=== PATIENT | female | born 1980 ===

== ENCOUNTER 2018-06-17 15:02 | Emergency (ER) | payer MEDICAID, OTHER ==
[2018-06-17 15:09] VITALS: RESP 18
--- NOTE | 2018-06-17 16:01 | RAD ---
Date of service: 06/17/2018 PROCEDURE: CHEST RADIOGRAPH, 1 VIEW HISTORY: chest pain COMPARISON: 02/15/2016 FINDINGS: LUNGS: Clear. PLEURA: No pneumothorax or pleural fluid seen. CARDIOVASCULAR: No aortic atherosclerotic calcification present. Normal. OSSEOUS STRUCTURES: No significant abnormalities. VISUALIZED UPPER ABDOMEN: Normal. OTHER FINDINGS: None. IMPRESSION: No active disease.
[2018-06-17 16:36] LABS: BASO # 0.1 K/uL (0.0-0.2); BASO % 1.6 % (0.0-2.0); EOS # 0.1 K/uL (0.0-0.7); EOS % 1.4 % (0.0-4.0); HEMOGLOBIN 13.4 g/dL (11.0-16.0); LYMPH # 1.8 K/uL (1.0-4.3); LYMPH % 30.7 % (20.0-40.0); MEAN CELL VOLUME 90.6 fL (81.0-99.0); MEAN CORPUSCULAR HEMOGLOBIN 29.2 pg (27.0-31.0); MEAN CORPUSCULAR HGB CONC 32.2 g/dL (33.0-37.0); MEAN PLATELET VOLUME 8.7 fL (7.2-11.7); MONO # 0.4 K/uL (0.0-0.8); MONO % 6.5 % (0.0-10.0); NEUT # 3.6 K/uL (1.8-7.0); NEUT % 59.8 % (50.0-75.0); RBC 4.6 Mil/uL (3.80-5.20); RED CELL DISTRIBUTION WIDTH 12.5 % (11.5-14.5); WHITE BLOOD COUNT 5.9 K/uL (4.8-10.8)
[2018-06-17 16:57] LABS: ALB/GLOB RATIO 1.3 (1.0-2.1); ALBUMIN 4.5 g/dL (3.5-5.0); ALT/SGPT 14 U/L (9-52); AST/SGOT 33 U/L (14-36); BLOOD UREA NITROGEN 14 mg/dL (7-17); CALCIUM 8.9 mg/dl (8.6-10.4); GFR NON-AFRICAN AMERICAN > 60
--- NOTE | 2018-06-17 17:25 | C.PDOC ---
Time Seen by Provider: 06/17/18 15:03 Chief Complaint (Nursing): Chest Pain Past Medical History Vital Signs: Last Vital Signs Temp 98.6 F 06/17/18 15:06 Pulse 70 06/17/18 15:06 Resp 18 06/17/18 15:06 BP 110/73 06/17/18 15:06 Pulse Ox 100 06/17/18 15:06 - Medical History PMH: Depression Denies: HIV, HTN, Pancreatitis, Chronic Kidney Disease, Sexually Transmitted Disease Comment Only: Seizures (denies) Family History: States: Unknown Family Hx - Social History Hx Tobacco Use: No Hx Alcohol Use: Yes Hx Substance Use: No - Immunization History Hx Tetanus Toxoid Vaccination: No Hx Influenza Vaccination: No Hx Pneumococcal Vaccination: No ED Course And Treatment - Laboratory Results Result Diagrams: 06/17/18 16:26 06/17/18 16:26 Lab Results: Troponin I < 0.0120 ng/mL (0.00-0.120) 06/17/18 16:26 Total Bilirubin 0.7 mg/dL (0.2-1.3) 06/17/18 16:26 AST 33 U/L (14-36) 06/17/18 16:26 ALT 14 U/L (9-52) 06/17/18 16:26 Alkaline Phosphatase 53 U/L (38-126) 06/17/18 16:26 Total Protein 7.9 g/dL (6.3-8.3) 06/17/18 16:26 Albumin 4.5 g/dL (3.5-5.0) 06/17/18 16:26 Globulin 3.4 gm/dL (2.2-3.9) 06/17/18 16:26 Albumin/Globulin Ratio 1.3 (1.0-2.1) 06/17/18 16:26 O2 Sat by Pulse Oximetry: 100 Disposition - Disposition Referrals: [facility] [Outside] [facility] [Outside] Disposition: HOME/ ROUTINE Disposition Time: 17:23 Condition: STABLE Additional Instructions: Follow up with the medical doctor within 1-2 days.Return if worsened. Prescriptions: Naproxen [Naprosyn] 500 mg PO BID #20 tab Instructions: Costochondritis (DC) Forms: IPG (Nauruan), Work Excuse Print Language: TELUGU - Clinical Impression Clinical Impression: Costochondritis
--- NOTE | 2018-06-17 17:27 | C.PDOC ---
History Of Present Illness 38 year old female presents to ED with complaint of left-sided chest pain for the past 2-3 days. Patient reports the pain is non-radiating and worse with movement. Patient denies cough, SOB, palpitations, nausea, vomiting, headache, or dizziness. Time Seen by Provider: 06/17/18 15:03 Chief Complaint (Nursing): Chest Pain History Per: Patient History/Exam Limitations: no limitations Onset/Duration Of Symptoms: Days (2-3) Current Symptoms Are (Timing): Still Present Quality: "Pain" Associated Symptoms: denies: Nausea Exacerbating Factors: Movement Alleviating Factors: None Past Medical History Reviewed: Historical Data, Nursing Documentation, Vital Signs Vital Signs: Last Vital Signs Temp 98.6 F 06/17/18 15:06 Pulse 70 06/17/18 15:06 Resp 18 06/17/18 15:06 BP 110/73 06/17/18 15:06 Pulse Ox 100 06/17/18 15:06 - Medical History PMH: Depression Denies: HIV, HTN, Pancreatitis, Chronic Kidney Disease, Sexually Transmitted Disease Comment Only: Seizures (denies) Surgical History: No Surg Hx Family History: States: Unknown Family Hx - Social History Hx Tobacco Use: No Hx Alcohol Use: Yes Hx Substance Use: No - Immunization History Hx Tetanus Toxoid Vaccination: No Hx Influenza Vaccination: No Hx Pneumococcal Vaccination: No Review Of Systems Constitutional: Negative for: Fever, Chills, Weakness Cardiovascular: Positive for: Chest Pain (left-sided). Negative for: Palpitations Respiratory: Negative for: Cough, Shortness of Breath Gastrointestinal: Negative for: Nausea, Vomiting Neurological: Negative for: Weakness, Numbness, Headache, Dizziness Physical Exam - Physical Exam Appears: Well, Non-toxic, No Acute Distress Skin: Normal Color, Warm, Dry Head: Atraumatic, Normacephalic Neck: Normal ROM, Supple Chest: Symmetrical, No Deformity, No Tenderness Cardiovascular: Rhythm Regular, No Murmur Respiratory: No Accessory Muscle Use, No Rales, No Rhonchi, No Wheezing Extremity: Capillary Refill (<2 seconds) Neurological/Psych: Oriented x3, Normal Speech, Normal Cognition ED Course And Treatment - Laboratory Results Result Diagrams: 06/17/18 16:26 06/17/18 16:26 Lab Results: Troponin I < 0.0120 ng/mL (0.00-0.120) 06/17/18 16:26 Total Bilirubin 0.7 mg/dL (0.2-1.3) 06/17/18 16:26 AST 33 U/L (14-36) 06/17/18 16:26 ALT 14 U/L (9-52) 06/17/18 16:26 Alkaline Phosphatase 53 U/L (38-126) 06/17/18 16:26 Total Protein 7.9 g/dL (6.3-8.3) 06/17/18 16:26 Albumin 4.5 g/dL (3.5-5.0) 06/17/18 16:26 Globulin 3.4 gm/dL (2.2-3.9) 06/17/18 16:26 Albumin/Globulin Ratio 1.3 (1.0-2.1) 06/17/18 16:26 ECG: Interpreted By Me, Viewed By Me ECG Rhythm: Sinus Rhythm ECG Interpretation: Normal Interpretation Of ECG: Normal ST/T waves. Normal axis. Rate From EC O2 Sat by Pulse Oximetry: 100 (in RA) - Other Rad CXR X-Ray: Interpreted by Me, Viewed By Me Interpretation: IMPRESSION: No active disease. Medical Decision Making Medical Decision Making: Plan: Labs ordered with CMP and troponin for patient Toradol IM given to patient CXR ordered for patient Disposition - Disposition Referrals: [facility] [Outside] [facility] [Outside] Disposition: HOME/ ROUTINE Disposition Time: 17:23 Condition: STABLE Additional Instructions: Follow up with the medical doctor within 1-2 days.Return if worsened. 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 (Winnie Aceves) - Scribe Statement The provider has reviewed the documentation as recorded by the Scribe (Winnie Aceves) All medical record entries made by the Scribe were at my direction and personally dictated by me. I have reviewed the chart and agree that the record accurately reflects my personal performance of the history, physical exam, medical decision making, and the department course for this patient. I have also personally directed, reviewed, and agree with the discharge instructions and disposition.
[2018-06-17 17:42] VITALS: BP 116/75; PULSE 63; TEMP 98; O2SAT 99
--- NOTE | 2018-06-20 12:55 | CARD ---
APPROVED REPORT Date of service: 06/17/2018 EKG Measurement Heart [id number] <Conclusion> Normal sinus rhythm Normal ECG
== END 2018-06-17 17:51 | disposition home or self-care (01) ==
LOC: C.ER 15:02
DX: M94.0 Chondrocostal junction syndrome [Tietze] (principal)
CPT/HCPCS: 71045; 80053; 84484; 85025; 93005; 96372; 99284; J1885